=== PATIENT | male | born 1975 | race Caucasian/White ===

== ENCOUNTER 2016-04-04 19:57 | Emergency (ER) ==
[2016-04-04 20:07] VITALS: BP 121/77; TEMP 98.7; BMI 50.2
[2016-04-04] MEDS ORDERED: GI COCKTAIL PO STA (20:13)
[2016-04-04 20:29] LABS: BASOPHILS # (AUTO) 0.1 K/uL (0-0.2); BASOPHILS % (AUTO) 0.3 % (0.0-3.0); EOSINOPHILS # (AUTO) 0.2 K/ul (0.0-0.7); HEMATOCRIT 43.9 % (42.0-52.0); HEMOGLOBIN 14.5 g/dl (14.0-18.0); IMMATURE GRANULOCYTE % (AUTO) 0.4 % (0.0-5.0); LYMPHOCYTES # (AUTO) 1.8 K/uL (0.60-3.4); LYMPHOCYTES % (AUTO) 11.2 (10.0-50.0); MEAN CORPUSCULAR VOLUME 87.8 fl (80.0-94.0); MONOCYTES # (AUTO) 0.9 K/uL (0.4-2.0); MONOCYTES % (AUTO) 5.2 (0-10); NEUTROPHILS # (AUTO) 13.4 K/ul (2.0-6.9); NEUTROPHILS % (AUTO) 81.9; PLATELET COUNT 316 10^3/uL (140-440); WHITE BLOOD COUNT 16.31 K/ul (4.2-10.2)
[2016-04-04 20:44] LABS: FLU INTERNAL QC INTERNAL QC VALID; RAPID FLU A NEGATIVE (NEGATIVE); RAPID FLU B NEGATIVE (NEGATIVE)
[2016-04-04 20:55] LABS: ALANINE AMINOTRANSFERASE 20 U/L (12-78); ALBUMIN 3.2 g/dL (3.4-5.0); ALBUMIN/GLOBULIN RATIO 0.82; ALKALINE PHOSPHATASE 78 U/L (50-136); ASPARTATE AMINO TRANSFERASE 17 U/L (15-37); BILIRUBIN,TOTAL 0.32 mg/dL (0.00-1.20); BLOOD UREA NITROGEN 12 mg/dL (7-18); BUN/CREATININE RATIO 14.63; CARBON DIOXIDE 24 mmol/L (21-32); CREATINE KINASE 97 U/L; CREATININE 0.82 mg/dL (0.60-1.10); GLUCOSE 121 mg/dL (70-100); TOTAL PROTEIN 7.1 g/dL (6.4-8.2)
[2016-04-04 20:56] LABS: ANION GAP 14.6; CHLORIDE 103 mmol/L (98-107); POTASSIUM 3.6 mmol/L (3.5-5.1); SODIUM 138 mmol/L (136-145)
--- NOTE | 2016-04-04 21:15 | ED.PDOC ---
General ED Provider: Dr. DAV CALLAWAY-ER Chief Complaint: Cough Stated Complaint: im coughing up yellow stuff Time Seen by Physician: 20:00 Mode of Arrival: Walk-In Information Source: Patient, Family Exam Limitations: No limitations [facility] Nursing and Triage Documentation Reviewed and Agree: Yes Respiratory Complaint Exam - Respiratory Complaint/Exam Onset/Duration: 4 days Symptoms Are: Still present Timing: Intermittent Initial Severity: Mild Current Severity: Mild Location: Chest Character: Reports: Productive cough Aggravating: Reports: URI Alleviating: Reports: None Associated Signs and Symptoms: Reports: URI, Nasal congestion. Denies: Rapid breathing, Dyspnea, Fever, Chills, Chest pain, Pleuritic chest pain, Wheezing, Hemoptysis, Dizziness, Calf pain, Calf swelling, Edema, Hoarseness, Sinus discomfort, Vomiting, Sore throat, Weight loss, Decreased oral intake, Increased thirst, Increased appetite, Increased urination Related History: Reports: Similar episode History of Healthcare-Acquired Pneumonia: No Related Surgical History: Reports: None Pulmonary Embolism Risk Factors: Smoking Tuberculosis Risk Factors: Reports: None Status Asthmaticus Risk Factors: Reports: None Home Oxygen Use: No Recent Stress Test: No Recent Echo/LV Function: No Current Antibiotic Use: No Current Asthma Medication Use: No Respiratory Distress: None Inadequate Respiratory Effort: No Dysphagia Present: No Stridor Present: No JVD Present: No Accessory Muscle Use: No Retractions: Not Present Diminished Breath Sounds: No Sinus Tenderness: Maxillary Grunting Respirations: No Kussmaul Respirations: No Differential Diagnoses: Bronchitis, Sinusitis Review of Systems - Review Of Systems Constitutional: Reports: No symptoms Eyes: Reports: No symptoms Ears, Nose, Mouth, Throat: Reports: Nose discharge Respiratory: Reports: Cough Cardiac: Reports: No symptoms GI: Reports: No symptoms : Reports: No symptoms Musculoskeletal: Reports: No symptoms Skin: Reports: No symptoms Neurological: Reports: No symptoms Endocrine: Reports: No symptoms Hematologic/Lymphatic: Reports: No symptoms All Other Systems: Reviewed and Negative Past Medical History - Past Medical History Endocrine: Reports: None Cardiovascular: Reports: Hypertension Respiratory: Reports: None Hematological: Reports: None Gastrointestinal: Reports: GERD Genitourinary: Reports: None Neuro/Psych: Reports: None Musculoskeletal: Reports: None Cancer: Reports: None - Surgical History General Surgical History: Reports: Orthopedic (Left knee surgery ), Other ( SURGERY ON BOTH EYES DUE TO STIGMATISM AND TIGHTENED MUSCLES IN EYES APPROX 15 YRS AGO; ) - Family History Family History: Reports: None - Social History Smoking Status: Former smoker Hx Substance Use: No Alcohol Screening: None Lives: With family - Immunizations Tetanus Shot up to Date: No (over 10 years ago) Physical Exam - Physical Exam Appearance: Well-appearing, No pain distress, Well-nourished Eyes: EDGARDO, EOMI, Conjunctiva clear ENT: Rhinorrhea Neck: Supple Respiratory: Airway patent, Breath sounds equal, Respirations nonlabored, Rhonchi Cardiovascular: RRR GI/: Soft Musculoskeletal: Normal strength, ROM intact, No edema, No calf tenderness Skin: Warm, Dry, Normal color Neurological: Sensation intact, Motor intact, Reflexes intact, Cranial nerves intact, Alert, Oriented Psychiatric: Affect appropriate, Mood appropriate Interpretation - Radiology Interpretation Radiology Interpretation By: Radiologist Radiology Results: Positive Exam Interpreted: CXR Critical Care Note - Critical Care Note Total Time (mins): 0 Course - Course Hematology/Chemistry: 04/04/16 20:26 04/04/16 20:26 Orders, Labs, Meds: Lab Review 04/04/16 20:26 WBC 16.31 H RBC 5.00 Hgb 14.5 Hct 43.9 MCV 87.8 MCH 29.0 MCHC 33.0 RDW Coeff of [place] 12.8 Plt Count 316 Immature Gran % (Auto) 0.4 Neut % (Auto) 81.9 Lymph % (Auto) 11.2 [place] % (Auto) 5.2 Eos % (Auto) 1.0 Baso % (Auto) 0.3 Immature Gran # (Auto) 0.1 Neut # 13.4 H Lymph # 1.8 [place] # 0.9 Eos # 0.2 Baso # 0.1 D-Dimer 316.67 H Sodium 138 Potassium 3.6 Chloride 103 Carbon Dioxide 24 Anion Gap 14.6 BUN 12 Creatinine 0.82 Estimated GFR (MDRD) 103.00 BUN/Creatinine Ratio 14.63 Glucose 121 H Calcium 9.0 Total Bilirubin 0.32 AST 17 ALT 20 Alkaline Phosphatase 78 Total Creatine Kinase 97 Troponin I < 0.0100 B-Natriuretic Peptide 33 Total Protein 7.1 Albumin 3.2 L Globulin 3.9 Albumin/Globulin Ratio 0.82 Influenza A (Rapid) Negative Influenza B (Rapid) Negative Orders Category Date Time Status EKG-(ED ONLY) Stat CARDIO 04/04/16 20:12 Completed BNP [B-TYPE NATRIURETIC PEPTIDE] Stat LAB 04/04/16 20:26 Completed CBC W/ AUTO DIFF Stat LAB 04/04/16 20:26 Completed COMPREHENSIVE METABOLIC PANEL Stat LAB 04/04/16 20:26 Completed CREATINE KINASE Stat LAB 04/04/16 20:26 Completed D-DIMER Stat LAB 04/04/16 20:26 Completed MOLECULAR GROUP A STREP Stat LAB 04/04/16 20:26 Results RAPID FLU A/B Stat LAB 04/04/16 20:26 Completed STREP SCREEN Stat LAB 04/04/16 20:26 Results TROPONIN I Stat LAB 04/04/16 20:26 Completed Mag-Al Plus//Lidocaine [Gi Cocktail] MEDS 04/04/16 20:13 Discontinued 30 ml PO ONCE STA CXR [CHEST, 2 VIEWS PA & LAT] Stat RADS 04/04/16 20:12 Completed Medications Discontinued Medications Generic Name Dose Route Start Last Admin Trade Name Freq PRN Reason Stop Dose Admin Al Hydroxide/Mg Hydroxide 30 ml 04/04/16 20:13 04/04/16 20:21 Gi Cocktail PO 04/04/16 20:14 30 ml ONCE STA Administration Vital Signs: Temp Pulse Resp BP Pulse Ox 04/04/16 19:59 98.7 F 113 H 20 121/77 96 Departure - Departure Time of Disposition: 21:15 Disposition: HOME SELF-CARE Discharge Problem: Pneumonia Qualifiers: Pneumonia type: due to unspecified organism Laterality: left Lung location: lower lobe of lung Qualifier Code: (J18.9) Pneumonia, unspecified organism Discharge Problem: (Ruled Out): Bronchitis Instructions: Acute Bronchitis (ED) Condition: Good Pt referred to PMD for follow-up: Yes Additional Instructions: biaxin 500mg bid x 10 days--f/u with pcp and get cxr repeated later this week Allergies/Adverse Reactions: Allergies escitalopram oxalate [From Lexapro] Adverse Reaction (Verified 04/04/16 20:06) HALLUCINATIONS zolpidem tartrate [From Ambien] Adverse Reaction (Verified 04/04/16 20:06) HALLUCINATION Home Medications: Ambulatory Orders Ibuprofen [Motrin] 600 mg PO Q6H PRN #30 tablet 05/28/15 Disposition Discussed With: Patient, Family
--- NOTE | 2016-04-04 21:54 | DI ---
EXAM: Chest two views HISTORY: Cough COMPARISON: None TECHNIQUE: Two views of the chest were performed FINDINGS: There is left lower lobe consolidation There is no pleural effusion or pneumothorax. Th e heart is normal in size. The mediastinal contour is normal. There are no acute abnormalities of the bones. IMPRESSION: Left lower lobe pneumonia. Recommend radiographic follow-up to resolution. Report faxed at time of dictation
== END 2016-04-04 22:00 | disposition home or self-care (01) ==
LOC: ED 19:57
DX: J18.9 Pneumonia, unspecified organism (principal)
CPT/HCPCS: 36415; 80053; 82550; 83880; 84484; 85025; 85379; 87651; 87804; 87880; 93005; 93010; 99283

== ENCOUNTER 2016-04-14 13:41 | Outpatient (CLI) ==
[2016-04-14 13:56] LABS: BASOPHILS # (AUTO) 0.1 K/uL (0-0.2); BASOPHILS % (AUTO) 0.7 % (0.0-3.0); EOSINOPHILS # (AUTO) 0.2 K/ul (0.0-0.7); EOSINOPHILS % (AUTO) 2.1 % (0.0-7.0); HEMATOCRIT 44.6 % (42.0-52.0); HEMOGLOBIN 14.9 g/dl (14.0-18.0); IMMATURE GRANULOCYTE % (AUTO) 0.4 % (0.0-5.0); LYMPHOCYTES % (AUTO) 20.9 (10.0-50.0); MEAN CORPUSCULAR HEMOGLOBIN 29.5 pg (27.0-31.0); MEAN CORPUSCULAR HGB CONC 33.4 (31.8-35.4); MEAN CORPUSCULAR VOLUME 88.3 fl (80.0-94.0); MONOCYTES # (AUTO) 0.6 K/uL (0.4-2.0); MONOCYTES % (AUTO) 6.3 (0-10); NEUTROPHILS # (AUTO) 6.8 K/ul (2.0-6.9); NEUTROPHILS % (AUTO) 69.6; PLATELET COUNT 334 10^3/uL (140-440); RED BLOOD COUNT 5.05 10^6/ul (4.70-6.10); WHITE BLOOD COUNT 9.77 K/ul (4.2-10.2)
--- NOTE | 2016-04-14 14:16 | DI ---
EXAM: LEFT SHOULDER HISTORY: Left shoulder pain FINDINGS: Left shoulder three-view. Bone and joint structures are within normal limits. There is n o joint dislocation or fracture identified. Bone density and soft tissues are unremarkable. IMPRESSION: Within normal limits.
[2016-04-14 14:45] LABS: ALBUMIN 3.3 g/dL (3.4-5.0); ALBUMIN/GLOBULIN RATIO 0.85; ANION GAP 14.1; BILIRUBIN,TOTAL 0.43 mg/dL (0.00-1.20); BUN/CREATININE RATIO 17.64; CALCIUM 9.2 mg/dL (8.2-10.2); CHOL/HDL RATIO 4.4 (4.5-6.4); CREATININE 0.85 mg/dL (0.60-1.10); POTASSIUM 4.1 mmol/L (3.5-5.1); TOTAL PROTEIN 7.2 g/dL (6.4-8.2)
== END 2016-04-14 13:42 | disposition home or self-care (01) ==
LOC: RAD 13:41
PROVIDERS: ATTEND Nurse Practitioner Family
DX: M25.512 Pain in left shoulder (principal); E78.5 Hyperlipidemia, unspecified; I10 Essential (primary) hypertension; R73.09 Other abnormal glucose
CPT/HCPCS: 36415; 80053; 80061; 83036; 84439; 84443; 85025

== ENCOUNTER 2016-04-21 11:51 | Outpatient (CLI) ==
--- NOTE | 2016-04-21 15:09 | MRI ---
EXAM: MRI left shoulder without contrast COMPARISON: Left shoulder radiographs 04/14/2016. HISTORY: Left shoulder pain. TECHNIQUE: Multiplanar noncontrast MR images of the left shoulder were acquired using a 1.2 Landy m [employer]. Several sequences were repeated due to patient motion artifact. FINDINGS: Moderate supraspinatus and subscapularis as well as mild infraspinatus tendinosis. Mild thinning and bursal surface irregularity of the supraspinatus at/lateral to the acromion over region measuring 2.0 cm medial to lateral dimension related bursal surface fraying/shallow partial-thickne ss bursal surface tear. Tiny partial-thickness/rim rent tear measuring 2 mm in size involving inser tional fibers of the supraspinatus anteriorly with edema/cystic change and spurring throughout the u nderlying greater tuberosity. Small focus of partial-thickness/intrasubstance tear of the distal valentin bscapularis superiorly. No full-thickness rotator cuff tear or tendon retraction. Small amount of fluid in the subacromial/subdeltoid bursa. The glenoid labrum is grossly unremarkable on this non arthrographic study. No paralabral cyst. Th e glenohumeral joint space is preserved without an acute fracture or dislocation. Physiologic amoun t of fluid within the joint. The long head of the biceps is located within the bicipital groove and is intact. Capsular hypertrophy and small marginal osteophytes at the acromioclavicular joint. There is a type 2 acromion. No evidence of an os acromiale or abnormal widening of the acromioclavicular joint spa ce. Sub centimeter axillary lymph nodes. IMPRESSION: 1. Mild to moderate rotator cuff tendinosis. Bursal surface fraying/shallow partial-thickness burs al surface tear of the supraspinatus and addition to a tiny partial-thickness/rim rent tear of the i nsertional fibers. Small partial-thickness/intrasubstance tear of the distal subscapularis. No ful l-thickness rotator cuff tear or tendon retraction. 2. Hypertrophic degenerative changes of the acromioclavicular joint. 3. Small amount of fluid in the subacromial/subdeltoid bursa.
== END 2016-04-21 11:52 | disposition home or self-care (01) ==
LOC: RAD 11:51
PROVIDERS: ATTEND Nurse Practitioner Family
DX: M25.512 Pain in left shoulder (principal)

== ENCOUNTER 2016-05-20 12:49 | Outpatient (CLI) ==
[2016-05-20 13:01] LABS: FLU INTERNAL QC INTERNAL QC VALID; RAPID FLU A NEGATIVE (NEGATIVE); RAPID FLU B NEGATIVE (NEGATIVE)
== END 2016-05-20 12:50 | disposition home or self-care (01) ==
LOC: LAB 12:49
PROVIDERS: ATTEND Nurse Practitioner Family
DX: J02.9 Acute pharyngitis, unspecified (principal); R52 Pain, unspecified
CPT/HCPCS: 87804; 87880

== ENCOUNTER 2016-05-24 12:49 | Outpatient (RCR) ==
--- NOTE | 2016-05-26 14:50 | RS.OPPTEV2 ---
Date of Note: 05/24/16 Visit #: 1 Date of Evaluation: 05/24/16 Payer Source: Medicaid Treatment Diagnosis: Left shoulder stiffness, pain History of Condition/Mechanism of Injury:: Patient reports left shoulder limitation for at least 6 months. Reports no known injury to the left shoulder. States it has progressively gotten more limited. Prior Level of Function.....Patient was independent with: ADL's, Self Care, Work /Vocation, Caregiving, Ambulation/Mobility, Community Integration/Access Current Subjective/complaints:: Patient reports limited mobility of his left shoulder. States pain has not been the main problem. He reports he is just having more difficulty using the left UE. Describes discomfort as a dull pain. He is right handed, but has to use the left UE at work, which has progressively become more difficult. States he is able to lay on the left shoulder at night. He denies any history of dislocation or significant shoulder injury. He received an injection in the left shoulder a couple of weeks ago, which did not give any lasting benefit. Treatment Side (optional): Left Medical History Medical History: Hypertension, Arthritis Smoking Status: Former smoker Diagnostic Testing/Imaging:: MRI left shoulder w/o contrast 04/14/16: Impression: "1. Mild to moderate rotator cuff tendinosis. bursal surface fraying/shallow partial-thickness bursal surface tear of the supraspinatus and addition to a tiny partial-thickness/rim rent tear of the insertional fibers. Small partial-thickness intrasubstance tear of the distal subscapularis. No full -thickness rotator cuff tear or tendon retraction. 2. Hypertrophic degenerative changes of the acromioclavicular joint. 3. Small amount of fulid in the subacromial/subdeltoid bursa.". Findings also state "There is a type 2 acromion." Patient's Goals: His goal is to get relief of shoulder pain and limitation. Pain Assessment - Pain Description Pain Location: left shoulder Pain Description: Dull Current Pain Intensity: 0/10 Worst Pain Intensity: 5/10 Functional Outcome Measure UE Functional Index: 72 (72/80=10% impairment) - G Codes & Severity Modifier G Codes & Modifier: NA Source of G Code score: Na Observation - Observation Posture: Forward Head, Rounded Shoulders Handedness: Right Shoulder ROM: Right WFL's Shoulder Muscle Strength: Right WFL's - Left Shoulder ROM Left Shoulder Flexion: 180 (degrees AROM) Left Shoulder Extension: 50 (degrees AROM) Left Shoulder Abduction: 82 (degrees AROM) Left Shoulder Internal Rotation: 70 (degrees AROM) Left Shoulder External Rotation: 65 (degrees AROM) Left Shoulder ROM Limitations: Soft Tissue Tightness, Pain - Left Shoulder Strength Left Shoulder Flexion: 5 Normal Left Shoulder Extension: 5 Normal Left Shoulder Abduction: 4+ Good + Left Shoulder Adduction: 5 Normal Left Shoulder External Rotation: 4+ Good + Left Shoulder Internal Rotation: 4+ Good + - Special Tests Shoulder Empty Can (Supraspinatus) Test: Negative Right, Positive Left Shoulder Speed's Sign Test: Negative Left, Negative Right Shoulder Drop Arm Test: Negative Left, Negative Right Shoulder [place] Impingement Test: Negative Right, Positive Left Palpation Comments:: Patient reports slight tenderness insertion of the supraspinatus and infraspinatus tendons of the left shoulder. Sensation - Sensation Right Upper Extremity: Intact/Normal Left Upper Extremity: Intact/Normal Interventions - Exercise/Activities/Manual Therapy Exercises/Activities: Patient instructed in HEP of pendulum exercises, RTC series (in pendulum position), and isometric shoulder ER against the wall. Manual Therapy: NA HOME EXERCISE PROGRAM: pendulum exercises, RTC series (in pendulum position), and isometric shoulder ER against the wall. - Charges Total Direct Minutes: 45 mins Total Treatment Time: 45 mins Procedures billed for this date of service:: SRINIVAS navarro Assessment Assessment: Patient presents with reports of left shoulder pain. He exhibits limited left shoulder abduction and ER due to pain. He presents with symptoms of involvement of the supraspinatus and infraspinatus tendons. He will benefit from therapy to decrease inflammation of involved soft tissue and exercises to strengthen the RTC, with emphasis on humeral depressors, to reduce his pain with activity. Patient Education: Education of diagnosis, Body/Joint mechanics, Home Exercise Program, Activity Modification, Education of Plan of Care Rehab Potential: Good Short Term Goals Goal #1: Pt independent and compliant with basic HEP. Goal to be met by: 06/09/16 Goal #2: Right shoulder ER WFL's with minimal discomfort. Goal to be met by: 06/09/16 Goal #3: Reports right shoulder pain <3/10 with activity. Goal to be met by: 06/09/16 Nursing Home Goals Goal #1: Pt knows HEP and to continue to maintain level of function at D/C. Goal to be met by: 06/30/16 Goal #2: Left shoulder AROM WFL's to perform all home & work activities. Goal to be met by: 06/30/16 Goal #3: Score on UE functional scale improved to 0% impairment. Goal to be met by: 06/30/16 Goal #4: Pt able to use left UE as needed with minimal shoulder pain. Goal to be met by: 06/30/16 Plan - Treatment to be Provided Procedures: Therapeutic Exercises, Therapeutic Activity, Manual Therapy, Patient Education Modalities: Electrical Stimulation, Ultrasound/Phonophoresis, Class IV Laser, Cryotherapy, Hot Packs - Treatment Plan Frequency: 2 X week Duration: 4 weeks ORDER # VISITS AND/OR THROUGH DATE: 06/30/16 - Treatment Code (1) Shoulder pain Qualifiers: Laterality: left Chronicity: unspecified Qualified Description: Left shoulder pain, unspecified chronicity Qualifier Code(s): (M25.512) Pain in left shoulder (2) Shoulder stiffness Qualifiers: Laterality: left Qualified Description: Stiffness of shoulder joint, left Qualifier Code(s): (M25.612) Stiffness of left shoulder, not elsewhere classified
== END 2016-05-25 ==
DX: S43.52XA Sprain of left acromioclavicular joint, initial encounter (principal)

== ENCOUNTER 2016-06-17 14:00 | Outpatient (RCR) ==
[2016-04-21 11:55] VITALS: BMI 50.2
--- NOTE | 2016-05-27 16:10 | RS.OPPTDN ---
Subjective Date of Note: 05/27/16 Visit #: 2 Date of Evaluation: 05/24/16 Payer Source: Medicaid Treatment Diagnosis: Left shoulder stiffness, pain Current Subjective/complaints:: Patient reports the lack of mobility in the L shoulder bothers him more than the actual pain. Pain Assessment - Pain Description Pain Location: L shoulder Pain Description: Dull, Aching Current Pain Intensity: 1-2/10 - Treatment Modality: Electrical Stim Unattended Parameters/Method Applied: 20 mins. high volt to L shoulder ,one channel @ 75 pv. - Heat/Cryotherapy Treatment: Hot Pack (concurrent with e-stim) Interventions - Exercise/Activities/Manual Therapy Exercises/Activities: 10 mins. of L shoulder PROM,AAROM in short ROM,ended session with isometrics all directions. Total minutes of Exercise: 10 Manual Therapy: 0 Total minutes of Manual Therapy: 0 - Charges Total Direct Minutes: 10 Total Treatment Time: 30 Procedures billed for this date of service:: hp,e-stim,ex 1 Assessment: Patient tolerates exercises with arm at side or at 45 degrees abducted,but has slight increase in pain with shoulder at 90 abducted.He has good understanding of joint protection ,but can benefit from patient education for safety while at work. Patient Education: Education of diagnosis, Body/Joint mechanics, Home Exercise Program, Home Safety, Activity Modification, Education of Plan of Care Patient demonstrates compliance with HEP?: Yes Short Term Goals Goal #1: Patient idependent and compliant with basic HEP. Goal to be met by: 06/09/16 Goal #2: Right shoulder ER WFL,s with minimal discomfort. Goal to be met by: 06/09/16 Progress towards Goal:: Progressing Goal #3: Reports right shoulder pain<3/10 with activity. Goal to be met by: 06/09/16 Progress towards Goal:: Progressing Skilled Nursing Goals Goal #1: Pt. knows HEP and to continue to maintain level of function at D/c. Goal to be met by: 06/30/16 Goal #2: Left shoulder AROM WFL's to perform all home & work activities. Goal to be met by: 06/30/16 Goal #3: Score on UE functional scale improved to 0% impairment. Goal to be met by: 06/30/16 Goal #4: Patient able to use left UE as needed wiith minimal shoulder pain. Goal to be met by: 06/30/16 Plan PLAN OF CARE EXPIRES ON:: 06/30/16 ORDER # VISITS AND/OR THROUGH DATE: 2x/wk for 4 weeks PLAN: Continue Plan of Care
--- NOTE | 2016-06-01 15:13 | RS.OPPTDN ---
Subjective Date of Note: 06/01/16 Visit #: 3 Date of Evaluation: 05/24/16 Payer Source: Medicaid Treatment Diagnosis: Left shoulder stiffness, pain Current Subjective/complaints:: Patient says he believes his last session "loosened" him up. He says he will leave from PT appt to go to work. Reports moving his arm into abd is what causes him pain. Pain Assessment - Pain Description Pain Location: L shoulder Pain Description: Dull, Aching Current Pain Intensity: none presently - Treatment Modality: Electrical Stim Unattended Parameters/Method Applied: hivolt 2 large pads @ 110 pk volts x 20 mins Treatment Area: L anterior and mid deltoid Patient Position: Sitting - Heat/Cryotherapy Treatment: Hot Pack Interventions - Exercise/Activities/Manual Therapy Exercises/Activities: 12 mins. of L shoulder PROM,AAROM in short ROM in sitting. Patient performed manual isometrics of the shoulder in all directions 2/5. Manual Therapy: 0 - Charges Total Direct Minutes: 12 Total Treatment Time: 32 Procedures billed for this date of service:: hp, estim (un), ex Assessment: Patient finding relief with performing pendulum at home. He is performing isometrics as well mainly for ER without difficulty. He kayla all PROM /AAROM well with exception of soreness with abd beyond 80 degrees. He guards throughout all passive motion today. Provided Biofreeze per request. Patient Education: Education of diagnosis, Body/Joint mechanics, Home Exercise Program, Home Safety, Activity Modification, Education of Plan of Care Patient demonstrates compliance with HEP?: Yes Short Term Goals Goal #1: Patient independent and compliant with basic HEP. Goal to be met by: 06/09/16 Progress towards Goal:: Progressing Goal #2: Right shoulder ER WFL,s with minimal discomfort. Goal to be met by: 06/09/16 Progress towards Goal:: Progressing Goal #3: Reports right shoulder pain<3/10 with activity. Goal to be met by: 06/09/16 Progress towards Goal:: Progressing Long-Term Goals Goal #1: Pt. knows HEP and to continue to maintain level of function at D/c. Goal to be met by: 06/30/16 Goal #2: Left shoulder AROM WFL's to perform all home & work activities. Goal to be met by: 06/30/16 Goal #3: Score on UE functional scale improved to 0% impairment. Goal to be met by: 06/30/16 Goal #4: Patient able to use left UE as needed wiith minimal shoulder pain. Goal to be met by: 06/30/16 Plan PLAN OF CARE EXPIRES ON:: 06/30/16 ORDER # VISITS AND/OR THROUGH DATE: 2x/wk for 4 weeks PLAN: Progress Exercises
--- NOTE | 2016-06-03 15:09 | RS.OPPTDN ---
Subjective Date of Note: 06/03/16 Visit #: 4 Date of Evaluation: 05/24/16 Payer Source: Medicaid Treatment Diagnosis: Left shoulder stiffness, pain Current Subjective/complaints:: Patient says that he had felt pain has been better. He says that he has been simulating throwing paper out of the window by performing horizontal abd. He says motion is better and less painful to perform. He says he may have done it too often and reproduced pain. Pain Assessment - Pain Description Pain Location: L shoulder Pain Description: Dull, Aching Current Pain Intensity: none presently - Treatment Modality: Electrical Stim Unattended Parameters/Method Applied: L mid and posterior shoulder @ 135-150 pk volts x 20 mins Patient Position: Sitting - Heat/Cryotherapy Treatment: Hot Pack Interventions - Exercise/Activities/Manual Therapy Exercises/Activities: 15 mins. of L shoulder PROM,AAROM in short ROM in sitting. Patient performed manual isometrics of the shoulder in all directions 2/5. Manual Therapy: 0 - Charges Total Direct Minutes: 15 Total Treatment Time: 35 Procedures billed for this date of service:: hp, estim (un), ex Assessment: Patient able to actively perform L horizontal abd better and more frequently before reproducing pain. Patient continues to guard throughout PROM , but is able to kayla better as well. Patient Education: Education of diagnosis, Body/Joint mechanics, Home Exercise Program, Home Safety, Activity Modification, Education of Plan of Care Patient demonstrates compliance with HEP?: Yes Short Term Goals Goal #1: Patient independent and compliant with basic HEP. Goal to be met by: 06/09/16 Progress towards Goal:: Progressing Goal #2: Right shoulder ER WFL,s with minimal discomfort. Goal to be met by: 06/09/16 Progress towards Goal:: Progressing Goal #3: Reports right shoulder pain<3/10 with activity. Goal to be met by: 06/09/16 Progress towards Goal:: Progressing [place] [employer] Goals Goal #1: Pt. knows HEP and to continue to maintain level of function at D/c. Goal to be met by: 06/30/16 Goal #2: Left shoulder AROM WFL's to perform all home & work activities. Goal to be met by: 06/30/16 Goal #3: Score on UE functional scale improved to 0% impairment. Goal to be met by: 06/30/16 Goal #4: Patient able to use left UE as needed wiith minimal shoulder pain. Goal to be met by: 06/30/16 Plan PLAN OF CARE EXPIRES ON:: 06/30/16 ORDER # VISITS AND/OR THROUGH DATE: 2x/wk for 4 weeks PLAN: Progress Exercises
--- NOTE | 2016-06-08 15:18 | RS.OPPTDN ---
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 He had to do this by raising the item over the tailgate instead of lowering the gate. He says he did have increased pain at that point, but has calmed down now. He says he can tell he has more mobility because he can raise his arm higher than last week. Pain Assessment - Pain Description Pain Location: L shoulder Pain Description: Dull, Aching Current Pain Intensity: mild (anterior and posterior shoulder) - Treatment Modality: Electrical Stim Unattended Parameters/Method Applied: hivolt 2 large pads x 20 mins to the L anterior/ posterior shoulder @ 145-150 pk volts. Patient Position: Sitting - Heat/Cryotherapy Treatment: Hot Pack Interventions - Exercise/Activities/Manual Therapy Exercises/Activities: 22 mins. of L shoulder PROM,AAROM in short ROM in sitting. Patient performed manual isometrics of the shoulder in all directions 2/5. Standing: Red latex free tband scap retraction (given for home as well). Manual Therapy: 0 - Charges Total Direct Minutes: 22 Total Treatment Time: 42 Procedures billed for this date of service:: hp, estim (Un), ex Assessment: Patient demonstrates full passive shoulder flexion and abd and actively WFL for flexion. Limited ER by approx 30-40% . Patient Education: Education of diagnosis, Body/Joint mechanics, Home Exercise Program, Home Safety, Activity Modification, Education of Plan of Care Patient demonstrates compliance with HEP?: Yes Short Term Goals Goal #1: Patient independent and compliant with basic HEP. Goal to be met by: 06/09/16 Progress towards Goal:: Progressing Goal #2: Right shoulder ER WFL,s with minimal discomfort. Goal to be met by: 06/09/16 Progress towards Goal:: Progressing Goal #3: Reports right shoulder pain<3/10 with activity. Goal to be met by: 06/09/16 Progress towards Goal:: Progressing Jail Goals Goal #1: Pt. knows HEP and to continue to maintain level of function at D/c. Goal to be met by: 06/30/16 Progress towards goal: Progressing Goal #2: Left shoulder AROM WFL's to perform all home & work activities. Goal to be met by: 06/30/16 Goal #3: Score on UE functional scale improved to 0% impairment. Goal to be met by: 06/30/16 Goal #4: Patient able to use left UE as needed wiith minimal shoulder pain. Goal to be met by: 06/30/16 Plan PLAN OF CARE EXPIRES ON:: 06/30/16 ORDER # VISITS AND/OR THROUGH DATE: 2x/wk for 4 weeks PLAN: Progress Exercises
--- NOTE | 2016-06-10 16:39 | RS.OPPTDN ---
Subjective Date of Note: 06/10/16 Visit #: 6 Date of Evaluation: 05/24/16 Payer Source: Medicaid Treatment Diagnosis: Left shoulder stiffness, pain Current Subjective/complaints:: Patient says he really isn't having much pain anymore. 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 He says he has been performing shoulder abd and increasing the range while at home and work and notices it is better. Pain Assessment - Pain Description Pain Location: L shoulder Pain Description: Dull, Aching Current Pain Intensity: none at present - Treatment Modality: Electrical Stim Unattended Parameters/Method Applied: 2 large pads @ 180 pk volts x 15 mins to anterior and mid deltoid (L) Patient Position: Sitting - Heat/Cryotherapy Treatment: Hot Pack Interventions - Exercise/Activities/Manual Therapy Exercises/Activities: 22 mins. of L shoulder PROM,AAROM in short ROM in sitting. Patient performed manual isometrics of the shoulder in all directions 2/5. Added 2# wand for bilateral shoulder flexion and green tband scap retraction. Manual Therapy: 0 - Charges Total Direct Minutes: 22 Total Treatment Time: 37 Procedures billed for this date of service:: hp, estim (un), ex Assessment: Patient presenting with less pain, in fact, none at present. He is working on HEP to accrue increased abd/flexion. He kayla all strengthening well. Patient Education: Education of diagnosis, Body/Joint mechanics, Home Exercise Program, Home Safety, Activity Modification, Education of Plan of Care Patient demonstrates compliance with HEP?: Yes Short Term Goals Goal #1: Patient independent and compliant with basic HEP. Goal to be met by: 06/09/16 Progress towards Goal:: Progressing Goal #2: Right shoulder ER WFL,s with minimal discomfort. Goal to be met by: 06/09/16 Progress towards Goal:: Progressing Goal #3: Reports right shoulder pain<3/10 with activity. Goal to be met by: 06/09/16 Progress towards Goal:: Progressing Mcfp Goals Goal #1: Pt. knows HEP and to continue to maintain level of function at D/c. Goal to be met by: 06/30/16 Progress towards goal: Progressing Goal #2: Left shoulder AROM WFL's to perform all home & work activities. Goal to be met by: 06/30/16 Goal #3: Score on UE functional scale improved to 0% impairment. Goal to be met by: 06/30/16 Goal #4: Patient able to use left UE as needed wiith minimal shoulder pain. Goal to be met by: 06/30/16 Plan PLAN OF CARE EXPIRES ON:: 06/30/16 ORDER # VISITS AND/OR THROUGH DATE: 2x/wk for 4 weeks PLAN: Progress Exercises
--- NOTE | 2016-06-15 16:03 | RS.OPPTDN ---
Subjective Date of Note: 06/15/16 Visit #: 7 Date of Evaluation: 05/24/16 Payer Source: Medicaid Treatment Diagnosis: Left shoulder stiffness, pain Current Subjective/complaints:: Patient admits that yesterday (all day) he has had a dull ache to the upper L arm comparing it to as if he had slept on it all day. He says other than yesterday, pain is relatively low and is stronger with tasks at work and home. Pain Assessment - Pain Description Pain Location: L shoulder Pain Description: Dull, Aching Current Pain Intensity: none at present - Treatment Modality: Electrical Stim Unattended Parameters/Method Applied: 2 large pads @ 110-145 pk volts x 15 mins to L anterior and mid deltoid Patient Position: Sitting - Heat/Cryotherapy Treatment: Hot Pack Interventions - Exercise/Activities/Manual Therapy Exercises/Activities: 22 mins. of L shoulder PROM,AAROM in short ROM in sitting. Patient performed manual isometrics of the shoulder in all directions 2/5. Continued with 3# wand for bilateral shoulder flexion and blue tband scap retraction and added bilateral shoulder ER. Manual Therapy: 0 - Objective Findings Observations,measurements,etc.: Patient performs full PROM and AROM is WNL as well with the exception of ABD to approx 90 degrees, then paused by pain, then resumes to near WNL. Improved kayla to progressive strengthening in the department. - Charges Total Direct Minutes: 22 Total Treatment Time: 42 Procedures billed for this date of service:: hp, estim (un), ex Assessment: Patient demo progressive strengthening and ROM. He performs HEP often at work and notices improved ability to perform job duties. Impingement symptoms are present with active shoulder abd ~90 degrees. Patient Education: Education of diagnosis, Body/Joint mechanics, Home Exercise Program, Home Safety, Activity Modification, Education of Plan of Care Patient demonstrates compliance with HEP?: Yes Short Term Goals Goal #1: Patient independent and compliant with basic HEP. Goal to be met by: 06/09/16 Progress towards Goal:: Met Goal #2: Right shoulder ER WFL,s with minimal discomfort. Goal to be met by: 06/09/16 Progress towards Goal:: Met Goal #3: Reports right shoulder pain<3/10 with activity. Goal to be met by: 06/09/16 Progress towards Goal:: Progressing Long-Term Goals Goal #1: Pt. knows HEP and to continue to maintain level of function at D/c. Goal to be met by: 06/30/16 Progress towards goal: Progressing Goal #2: Left shoulder AROM WFL's to perform all home & work activities. Goal to be met by: 06/30/16 Progress towards goal: Progressing Goal #3: Score on UE functional scale improved to 0% impairment. Goal to be met by: 06/30/16 Goal #4: Patient able to use left UE as needed wiith minimal shoulder pain. Goal to be met by: 06/30/16 Plan PLAN OF CARE EXPIRES ON:: 06/30/16 ORDER # VISITS AND/OR THROUGH DATE: 2x/wk for 4 weeks PLAN: Progress Exercises (Patient to attend one more session per order. Patient to progress HEP independently and attend f/u with Ortho)
--- NOTE | 2016-06-17 15:39 | RS.OPPTDN ---
Subjective Date of Note: 06/17/16 Visit #: 8 Date of Evaluation: 05/24/16 Payer Source: Medicaid Treatment Diagnosis: Left shoulder stiffness, pain Current Subjective/complaints:: Patient says he no longer has sharp pain. He says he rarely has pain at all unless he lifts something heavy above his head. He says job tasks are usually very tolerable because he has help if he needs it. Pain Assessment - Pain Description Pain Location: L shoulder Pain Description: Dull, Aching Current Pain Intensity: none at present - Treatment Modality: Electrical Stim Unattended Parameters/Method Applied: hivolt 2 large pads @ 120 pk volts x 20 mins to the L anterior/mid deltoid Patient Position: Sitting - Heat/Cryotherapy Treatment: Hot Pack Interventions - Exercise/Activities/Manual Therapy Exercises/Activities: 22 mins. of L shoulder PROM,AAROM in short ROM in sitting. Patient performed manual isometrics of the shoulder in all directions 2/5. Progressed to 4# wand for bilateral shoulder flexion and blue tband scap retraction, bilateral shoulder ER. Added blue tband shoulder flexion, extension , and horizontal bilateral abd. All 2/10 reps. Reassessment of UE Functional Scale. Manual Therapy: 0 - Objective Findings Observations,measurements,etc.: 75/80 or 6% impairment (Eval 72/80 or 10%) - Charges Total Direct Minutes: 22 Total Treatment Time: 42 Procedures billed for this date of service:: hp, estim (un), ex Assessment: Patient demonstrates full L shoulder flexion and ~10 % limitation with ABD actively. ER is full passively, limited by ~20% actively. UE Score has improved from 10% impairment to 6%. Patient Education: Education of diagnosis, Body/Joint mechanics, Home Exercise Program, Home Safety, Activity Modification, Education of Plan of Care Patient demonstrates compliance with HEP?: Yes Short Term Goals Goal #1: Patient independent and compliant with basic HEP. Goal to be met by: 06/09/16 Progress towards Goal:: Met Goal #2: Right shoulder ER WFL,s with minimal discomfort. Goal to be met by: 06/09/16 Progress towards Goal:: Met Goal #3: Reports right shoulder pain<3/10 with activity. Goal to be met by: 06/09/16 Progress towards Goal:: Progressing Assisted Goals Goal #1: Pt. knows HEP and to continue to maintain level of function at D/c. Goal to be met by: 06/30/16 Progress towards goal: Progressing Goal #2: Left shoulder AROM WFL's to perform all home & work activities. Goal to be met by: 06/30/16 Progress towards goal: Progressing Goal #3: Score on UE functional scale improved to 0% impairment. Goal to be met by: 06/30/16 Goal #4: Patient able to use left UE as needed wiith minimal shoulder pain. Goal to be met by: 06/30/16 Plan PLAN OF CARE EXPIRES ON:: 06/30/16 ORDER # VISITS AND/OR THROUGH DATE: 2x/wk for 4 weeks PLAN: Plan for Discharge (Patient has completed original orders allowed and per approved insurance)
--- NOTE | 2016-07-12 09:42 | RS.QUICKDC ---
Discharge from PT Date of Discharge: 07/12/16 Number of Visits: 8 Reason for Discharge: Patient attended full order for PT regarding the L shoulder. He received treatment of moist heat, estim, and therex of mobility and strengthening. He was given HEP including moderate resistance tbands and ROM activity. He reported improvement in pain and motion allowing better toleration for work activities. He is discharged at this time. See daily notes for specific treatment.
== END 2016-06-25 ==
DX: S43.52XA Sprain of left acromioclavicular joint, initial encounter (principal)

== ENCOUNTER 2016-06-26 12:51 | Emergency (ER) ==
[2016-06-26 12:54] VITALS: BP 161/100; TEMP 96.4; BMI 48.4
--- NOTE | 2016-06-26 13:36 | DI ---
EXAM: Right foot, three views. HISTORY: Right foot pain. COMPARISON: None. FINDINGS: AP, lateral and oblique views of the right foot. There are no acute or healing fractures . There are no lytic or blastic lesions. The soft tissues are normal. Bone mineralization is norm al. There is a small plantar spur. IMPRESSION: 1. No acute fracture. 2. Plantar spur.
--- NOTE | 2016-06-26 13:38 | DI ---
EXAM: Right ankle. Three view. HISTORY: Right ankle pain. COMPARISON: None. FINDINGS: AP, lateral and oblique views of the right ankle. There are no acute or healing fracture s. There are no lytic or blastic lesions. Soft tissues are normal. There is a small plantar spur. The talar dome is intact. IMPRESSION: 1. No acute abnormalities. 2. Small plantar spur.
--- NOTE | 2016-06-26 13:48 | ED.PDOC ---
General ED Provider: Dr. WANDER KASPER Chief Complaint: Ankle Pain/Injury Stated Complaint: ankle pain/ foot pain Time Seen by Physician: 13:00 Mode of Arrival: Walk-In Information Source: Patient Exam Limitations: No limitations Primary Care Provider: AALIYAH DE JESUS Nursing and Triage Documentation Reviewed and Agree: Yes Musculoskeletal Complaint Exam - Ankle/Foot Complaint/Exam Location of Injury: Reports: Right, Ankle, Foot Mechanism of Injury: Reports: No known trauma Onset/Duration: 1 day Symptoms Are: Reports: Still present Onset of Pain: Reports: Hours Initial Severity: Moderate Current Severity: Mild Location: Reports: Discrete Character: Reports: Aching Alleviating: Reports: Rest, Position Aggravating: Reports: Movement, Weight bearing Able to Bear Weight: Yes Associated Signs and Symptoms: Denies: Swelling, Redness, Bruising, Fever, Weakness, Numbness, Tingling Gout Risk Factors: Reports: >40 years old Related Surgical History: Reports: None Achilles Tendon Abnormality: No Tenderness: Present: Lateral malleolus, Midfoot Differential Diagnosis: Closed Fracture Review of Systems - Review Of Systems Constitutional: Reports: No symptoms Eyes: Reports: No symptoms Ears, Nose, Mouth, Throat: Reports: No symptoms Respiratory: Reports: No symptoms Cardiac: Reports: No symptoms GI: Reports: No symptoms : Reports: No symptoms Musculoskeletal: Reports: Other (ankle, foot pain right sided ) Skin: Reports: No symptoms Neurological: Reports: No symptoms Endocrine: Reports: No symptoms Hematologic/Lymphatic: Reports: No symptoms All Other Systems: Reviewed and Negative Past Medical History - Past Medical History Endocrine: Reports: None Cardiovascular: Reports: Hypertension Respiratory: Reports: None Hematological: Reports: None Gastrointestinal: Reports: GERD Genitourinary: Reports: None Neuro/Psych: Reports: None Musculoskeletal: Reports: None Cancer: Reports: None - Surgical History General Surgical History: Reports: Orthopedic (Left knee surgery ), Other ( SURGERY ON BOTH EYES DUE TO STIGMATISM AND TIGHTENED MUSCLES IN EYES APPROX 15 YRS AGO; ) - Family History Family History: Reports: None - Social History Smoking Status: Former smoker Hx Substance Use: No Alcohol Screening: None Physical Exam - Physical Exam Appearance: Well-appearing, No pain distress, Well-nourished Eyes: EDGARDO, EOMI, Conjunctiva clear ENT: Ears normal, Nose normal, Oropharynx normal Respiratory: Airway patent, Breath sounds clear, Breath sounds equal, Respirations nonlabored Cardiovascular: RRR, Pulses normal, No rub, No murmur GI/: Soft, Nontender, No masses, Bowel sounds normal, No Organomegaly Musculoskeletal: Normal strength, ROM intact, No edema, No calf tenderness Skin: Warm, Dry, Normal color Neurological: Sensation intact, Motor intact, Reflexes intact, Cranial nerves intact, Alert, Oriented Psychiatric: Affect appropriate, Mood appropriate Interpretation - Radiology Interpretation Radiology Interpretation By: Radiologist Radiology Results: No acute changes Critical Care Note - Critical Care Note Total Time (mins): 0 Course - Course Orders, Labs, Meds: Lab Review 06/26/16 13:10 Uric Acid 5.1 Orders Category Date Time Status URIC ACID Stat LAB 06/26/16 13:08 Ordered ANKLE, RIGHT MIN 3 VIEWS Stat RADS 06/26/16 13:08 Ordered FOOT, RIGHT 3 VIEWS Stat RADS 06/26/16 13:08 Ordered Vital Signs: Temp Pulse Resp BP Pulse Ox 06/26/16 12:51 96.4 F L 72 20 161/100 H 96 Departure - Departure Time of Disposition: 13:48 Disposition: HOME SELF-CARE Discharge Problem: Ankle pain Instructions: Arthralgia (ED) Condition: Good Pt referred to PMD for follow-up: No Additional Instructions: Please call your Family Physician as soon as possible to schedule a follow-up appointment. Allergies/Adverse Reactions: Allergies escitalopram oxalate [From Lexapro] Adverse Reaction (Verified 06/26/16 12:55) HALLUCINATIONS zolpidem tartrate [From Ambien] Adverse Reaction (Verified 06/26/16 12:55) HALLUCINATION Home Medications: Ambulatory Orders Ibuprofen [Motrin] 600 mg PO Q6H PRN #30 tablet 05/28/15 Lodine 400 mg PO BID 05/20/16
== END 2016-06-26 13:57 | disposition home or self-care (01) ==
LOC: ED 12:51
DX: M25.571 Pain in right ankle and joints of right foot (principal)
CPT/HCPCS: 36415; 84550; 99282

== ENCOUNTER 2016-10-05 15:38 | Outpatient (CLI) ==
[2016-10-05 17:38] LABS: BASOPHILS # (AUTO) 0.1 K/uL (0-0.2); BASOPHILS % (AUTO) 0.6 % (0.0-3.0); EOSINOPHILS # (AUTO) 0.1 K/ul (0.0-0.7); EOSINOPHILS % (AUTO) 1.2 % (0.0-7.0); HEMATOCRIT 44.1 % (42.0-52.0); HEMOGLOBIN 14.7 g/dl (14.0-18.0); IMMATURE GRANULOCYTE % (AUTO) 0.6 % (0.0-5.0); LYMPHOCYTES # (AUTO) 2.1 K/uL (0.60-3.4); LYMPHOCYTES % (AUTO) 19.4 (10.0-50.0); MEAN CORPUSCULAR HEMOGLOBIN 29.3 pg (27.0-31.0); MEAN CORPUSCULAR HGB CONC 33.3 (31.8-35.4); MONOCYTES # (AUTO) 0.7 K/uL (0.4-2.0); MONOCYTES % (AUTO) 6.2 (0-10); NEUTROPHILS # (AUTO) 7.6 K/ul (2.0-6.9); PLATELET COUNT 297 10^3/uL (140-440); RED BLOOD COUNT 5.01 10^6/ul (4.70-6.10); WHITE BLOOD COUNT 10.57 K/ul (4.2-10.2)
[2016-10-05 17:55] LABS: ALBUMIN 3.4 g/dL (3.4-5.0); ALBUMIN/GLOBULIN RATIO 1.06; BILIRUBIN,TOTAL 0.19 mg/dL (0.00-1.20); BUN/CREATININE RATIO 16.45; CALCIUM 8.8 mg/dL (8.2-10.2); CREATININE 0.79 mg/dL (0.60-1.10); TOTAL PROTEIN 6.6 g/dL (6.4-8.2)
[2016-10-05 17:58] LABS: H. PYLORI ANTIBODY NEGATIVE (NEGATIVE); H.PYLORI INTERNAL QC INTERNAL QC VALID
== END 2016-10-05 15:39 | disposition home or self-care (01) ==
LOC: LAB 15:38
PROVIDERS: ATTEND Nurse Practitioner Family
DX: R10.9 Unspecified abdominal pain (principal); R10.817 Generalized abdominal tenderness; R11.2 Nausea with vomiting, unspecified; K92.1 Melena
CPT/HCPCS: 36415; 80053; 82150; 83690; 85025; 86677

== ENCOUNTER 2016-10-08 11:14 | Outpatient (CLI) ==
--- NOTE | 2016-10-08 11:50 | CT ---
EXAM: CT ABDOMEN AND PELVIS HISTORY: Abdominal pain, midportion TECHNIQUE: CT abdomen and pelvis without intravenous contrast. Images were reconstructed using 5 m m section thickness. Reformations were prepared. COMPARISON: 07/25/2009 FINDINGS: Diagnostic limitations exist without including contrast enhanced images. Liver and spleen are gross ly unremarkable. Gallbladder is absent. Pancreas and adrenal glands appear normal. Kidneys and ure ters are within normal limits. There is minimal atherosclerotic disease of the aorta. Mild hazines s of the mesenteric root fat. Multiple tiny nonspecific mesenteric root lymph nodes are seen. No gastric distension. Normal appendix. Normal bowel gas pattern. Unremarkable prostate and urina ry bladder. No ascites. Bones reveal no acute abnormality. There is no ventral abdominal wall hernia. Lung bases are clear . No suspicious lung base nodular opacities. No pneumoperitoneum. IMPRESSION: 1. Haziness of the mesenteric root fat with multiple tiny nonspecific regional lymph nodes. This m ay represent a degree of mild mesenteritis or be a chronic finding for the patient. Less likely ear ly pathologic change such as neoplasia. 2. Kidneys, ureters and urinary bladder appear normal. 3. Normal bowel gas pattern.
== END 2016-10-08 11:15 | disposition home or self-care (01) ==
LOC: RAD 11:14
PROVIDERS: ATTEND Nurse Practitioner Family
DX: R10.9 Unspecified abdominal pain (principal); R10.817 Generalized abdominal tenderness; R11.2 Nausea with vomiting, unspecified; K92.1 Melena

== ENCOUNTER 2016-11-18 11:57 | Emergency (ER) ==
[2016-11-18 12:00] VITALS: BP 146/80; TEMP 97.3; BMI 47.3
--- NOTE | 2016-11-18 12:15 | ED.PDOC ---
General ED Provider: Dr. WANDER KASPER Chief Complaint: Wrist Pain/Injury Stated Complaint: left wrist pain Time Seen by Physician: 12:00 Mode of Arrival: Walk-In Information Source: Patient Exam Limitations: No limitations [facility] and Triage Documentation Reviewed and Agree: Yes Musculoskeletal Complaint Exam - Hand/Wrist Complaint/Exam Location of Pain: Reports: Left, Hand, Wrist Mechanism of Injury: Reports: No known trauma Onset/Duration: chronic no impact related injury Symptoms Are: Still present Initial Severity: Moderate Current Severity: Mild Character: Reports: Dull, Aching Alleviating: Reports: Rest, Elevation Aggravating: Reports: Movement Associated Signs and Symptoms: Denies: Swelling, Redness, Bruising, Fever, Weakness, Numbness, Tingling Related History: Reports: Similar episode Dominant Hand: Right Compartment Syndrome Risk Factors: Present: Pain Differential Diagnoses: Closed Fracture, Sprain, Strain, Tenosynovitis Review of Systems - Review Of Systems Constitutional: Reports: No symptoms Eyes: Reports: No symptoms Ears, Nose, Mouth, Throat: Reports: No symptoms Respiratory: Reports: No symptoms Cardiac: Reports: No symptoms GI: Reports: No symptoms : Reports: No symptoms Musculoskeletal: Reports: Joint pain Skin: Reports: No symptoms Neurological: Reports: No symptoms Endocrine: Reports: No symptoms Hematologic/Lymphatic: Reports: No symptoms All Other Systems: Reviewed and Negative Past Medical History - Past Medical History Endocrine: Reports: None Cardiovascular: Reports: Hypertension Respiratory: Reports: None Hematological: Reports: None Gastrointestinal: Reports: GERD Genitourinary: Reports: None Neuro/Psych: Reports: None Musculoskeletal: Reports: None Cancer: Reports: None - Surgical History General Surgical History: Reports: Orthopedic (Left knee surgery ), Other ( SURGERY ON BOTH EYES DUE TO STIGMATISM AND TIGHTENED MUSCLES IN EYES APPROX 15 YRS AGO; ) - Family History Family History: Reports: None - Social History Smoking Status: Former smoker Hx Substance Use: No Alcohol Screening: None Physical Exam - Physical Exam Appearance: Well-appearing, No pain distress, Well-nourished Eyes: EDGARDO, EOMI, Conjunctiva clear ENT: Ears normal, Nose normal, Oropharynx normal Respiratory: Airway patent, Breath sounds clear, Breath sounds equal, Respirations nonlabored Cardiovascular: RRR, Pulses normal, No rub, No murmur GI/: Soft, Nontender, No masses, Bowel sounds normal, No Organomegaly Musculoskeletal: Normal strength (but has pain on distal radial region), ROM intact, No edema, No calf tenderness Skin: Warm, Dry, Normal color Neurological: Sensation intact, Motor intact, Reflexes intact, Cranial nerves intact, Alert, Oriented Psychiatric: Affect appropriate, Mood appropriate Critical Care Note - Critical Care Note Total Time (mins): 0 Course - Course Vital Signs: Temp Pulse Resp BP Pulse Ox 11/18/16 11:57 97.3 F L 68 18 146/80 H 95 Departure - Departure Time of Disposition: 12:15 Disposition: HOME SELF-CARE Discharge Problem: Pain in wrist, Injury of wrist Instructions: Wrist Injury (ED) Condition: Good Pt referred to PMD for follow-up: Yes Allergies/Adverse Reactions: Allergies escitalopram oxalate [From Lexapro] Adverse Reaction (Verified 11/18/16 12:00) HALLUCINATIONS zolpidem tartrate [From Ambien] Adverse Reaction (Verified 11/18/16 12:00) HALLUCINATION Home Medications: Ambulatory Orders Hydrocodone/Acetaminophen [[place] 10-325 Tablet] 1 each PO Q8HR #12 tablet
--- NOTE | 2016-11-18 12:51 | DI ---
Exam: Left hand three view HISTORY: Pain. Comparison: Left wrist three-view 06/19/2014. FINDINGS: Three views of the left hand are submitted. The lateral view is limited by positioning. Site of pain is not specified, nor is a marker present. These images demonstrate no evidence of ac tai fracture or dislocation. There is no osseous erosion or radiodense foreign body. There is no s ignificant soft tissue swelling visualized. IMPRESSION: No acute fracture or dislocation involving the left hand.
--- NOTE | 2016-11-18 12:52 | DI ---
EXAM: LEFT WRIST THREE VIEWS HISTORY: Wrist pain FINDINGS: Bone and joint structures appear normal. No joint dislocation, displaced fracture or b one density abnormality. Soft tissues are within normal limits. No arthritic change. IMPRESSION: Unremarkable study.
== END 2016-11-18 12:50 | disposition home or self-care (01) ==
LOC: ED 11:57
DX: M25.532 Pain in left wrist (principal)
CPT/HCPCS: 99282

== ENCOUNTER 2017-08-30 10:21 | Outpatient (CLI) | END 2017-08-30 10:22 | disposition home or self-care (01) | LOC: RHC-LAB 10:21 | PROVIDERS: ATTEND Nurse Practitioner Family | DX: I10 Essential (primary) hypertension (principal); E78.5 Hyperlipidemia, unspecified; J02.9 Acute pharyngitis, unspecified | CPT/HCPCS: 36415; 80053; 80061; 84443; 85025; 87651 ==

== ENCOUNTER 2017-09-28 20:28 | Emergency (ER) | payer MEDICAID, OTHER ==
[2017-09-28 20:36] VITALS: BP 133/81; TEMP 98.5; BMI 48.7
--- NOTE | 2017-09-28 20:56 | ED.PDOC ---
General ED Provider: Dr. DAV CALLAWAY-ER Chief Complaint: Foot Pain/Injury Stated Complaint: my heel hurts Time Seen by Physician: 20:54 Mode of Arrival: Walk-In Information Source: Patient Exam Limitations: No limitations Primary Care Provider: INEZ DERAS-[facility] Nursing and Triage Documentation Reviewed and Agree: Yes Does patient meet sepsis criteria?: No System Inflammatory Response Syndrome: Not Applicable Sepsis Protocol: For patient's 13 years and over: Temp is 96.8 and below OR 101 and greater Pulse >90 BPM Resp >20/minute Acutely Altered Mental Status Are patient's symptoms suggestive of a new infection, such as: -Pneumonia -Skin, Soft Tissue -Endocarditis -UTI -Bone, Joint Infection -Implantable Device -Acute Abdominal Infection -Wound Infection -Meningitis -Blood Stream Catheter Infection -Unknown Musculoskeletal Complaint Exam - Ankle/Foot Complaint/Exam Location of Injury: Reports: Right, Foot Mechanism of Injury: Reports: No known trauma Onset/Duration: 2 weeks Symptoms Are: Reports: Still present Onset of Pain: Reports: Immediate Initial Severity: Mild Current Severity: Mild Location: Reports: Discrete Character: Reports: Dull Alleviating: Reports: None Aggravating: Reports: Movement, Weight bearing, Prolonged standing Able to Bear Weight: Yes Associated Signs and Symptoms: Denies: Swelling, Redness, Bruising, Fever, Weakness, Numbness, Tingling Achilles Tendon Abnormality: No Tenderness: Present: Heel Review of Systems - Review Of Systems Constitutional: Reports: No symptoms Eyes: Reports: No symptoms Ears, Nose, Mouth, Throat: Reports: No symptoms Respiratory: Reports: No symptoms Cardiac: Reports: No symptoms GI: Reports: No symptoms : Reports: No symptoms Musculoskeletal: Reports: No symptoms Skin: Reports: No symptoms Neurological: Reports: No symptoms Endocrine: Reports: No symptoms Hematologic/Lymphatic: Reports: No symptoms All Other Systems: Reviewed and Negative Past Medical History - Past Medical History Previously Healthy: No Endocrine: Reports: None Cardiovascular: Reports: Hypertension Respiratory: Reports: None Hematological: Reports: None Gastrointestinal: Reports: GERD Genitourinary: Reports: None Neuro/Psych: Reports: None Musculoskeletal: Reports: None Cancer: Reports: None - Surgical History General Surgical History: Reports: Orthopedic (Left knee surgery ), Other ( SURGERY ON BOTH EYES DUE TO STIGMATISM AND TIGHTENED MUSCLES IN EYES APPROX 15 YRS AGO; ) - Family History Family History: Reports: None - Social History Smoking Status: Former smoker Hx Substance Use: No Alcohol Screening: None - Immunizations Tetanus Shot up to Date: Yes Physical Exam - Physical Exam Appearance: Well-appearing, No pain distress, Well-nourished Pain Distress: Mild Eyes: EDGARDO, EOMI, Conjunctiva clear ENT: Ears normal, Nose normal, Oropharynx normal Neck: Supple Respiratory: Airway patent Cardiovascular: RRR, Pulses normal, No rub, No murmur GI/: Soft, Nontender, No masses, Bowel sounds normal, No Organomegaly Musculoskeletal: Normal strength, ROM intact, No edema, No calf tenderness Skin: Warm, Dry, Normal color Neurological: Sensation intact, Motor intact, Reflexes intact, Cranial nerves intact, Alert, Oriented Psychiatric: Affect appropriate, Mood appropriate Critical Care Note - Critical Care Note Total Time (mins): 0 Course - Course Orders, Labs, Meds: Orders Category Date Time Status HEEL, RIGHT (CALCANEUS) Stat RADS 09/28/17 20:30 Taken Vital Signs: Temp Pulse Resp BP Pulse Ox 09/28/17 20:29 98.5 F 83 20 133/81 96 Departure - Departure Time of Disposition: 20:56 Disposition: HOME SELF-CARE Discharge Problem: Heel spur Qualifiers: Laterality: right Qualified Code(s): M77.31 - Calcaneal spur, right foot Instructions: Heel Spur (ED), Plantar Fasciitis (ED) Condition: Good Pt referred to PMD for follow-up: Yes IPMP verified?: No Additional Instructions: use heel cup--cataflam 50mg tid with food #30--f/u with pcp Allergies/Adverse Reactions: Allergies escitalopram oxalate [From Lexapro] Adverse Reaction (Verified 09/28/17 20:33) HALLUCINATIONS zolpidem tartrate [From Ambien] Adverse Reaction (Verified 09/28/17 20:33) HALLUCINATION Disposition Discussed With: Patient
--- NOTE | 2017-09-28 21:33 | DI ---
EXAM: Right calcaneus. HISTORY: Pain. No acute injury. COMPARISON: Right foot dated 06/26/2016. FINDINGS: AP and lateral views of the right calcaneus. There is a plantar spur. There are no acute or healing fractures. There are no lytic or blastic lesions. The soft tissues are normal. IMPRESSION: Plantar spur. Otherwise normal calcaneus.
== END 2017-09-28 21:05 | disposition home or self-care (01) ==
LOC: ED 20:28
DX: M77.31 Calcaneal spur, right foot (principal)
CPT/HCPCS: 99282

== ENCOUNTER 2018-01-20 21:41 | Emergency (ER) ==
[2018-01-20 21:41] VITALS: BMI 48.7
[2018-01-20 21:47] VITALS: BP 160/98; TEMP 98.1
--- NOTE | 2018-01-20 22:34 | CT ---
EXAM: CT of the right wrist without contrast. HISTORY: Wrist pain for 4 weeks. PROCEDURE: Contiguous axial CT images of the right wrist without contrast with coronal and sagittal reformats. FINDINGS: The bones are intact with no evidence of fracture. The joint spaces are maintained. No so ft tissue abnormality. Impression: Negative CT of the right wrist.
--- NOTE | 2018-01-20 23:06 | ED.PDOC ---
General ED Provider: Dr. DAV CALLAWAY-ER Chief Complaint: Wrist Pain/Injury Stated Complaint: my wrist hurts Time Seen by Physician: 21:45 Mode of Arrival: Walk-In Information Source: Patient Exam Limitations: No limitations Primary Care Provider: INEZ DER[facility] Nursing and Triage Documentation Reviewed and Agree: Yes Does patient meet sepsis criteria?: No System Inflammatory Response Syndrome: Not Applicable Sepsis Protocol: For patient's 13 years and over: Temp is 96.8 and below OR 101 and greater Pulse >90 BPM Resp >20/minute Acutely Altered Mental Status Are patient's symptoms suggestive of a new infection, such as: -Pneumonia -Skin, Soft Tissue -Endocarditis -UTI -Bone, Joint Infection -Implantable Device -Acute Abdominal Infection -Wound Infection -Meningitis -Blood Stream Catheter Infection -Unknown Musculoskeletal Complaint Exam - Upper Extremity Complaint/Exam Location of Pain: Reports: Right, Wrist Mechanism of Injury: Reports: No known trauma Onset/Duration: 4 weeks Symptoms Are: Still present Timing: Constant Initial Severity: Mild Current Severity: Mild Location: Reports: Discrete Character: Reports: Aching Aggravating: Reports: Movement, Lifting, Flexion, Extension Related History: Reports: Similar episode Non-Orthopedic Risk Factors: Reports: None Compartment Syndrome Risk Factors: Present: Pain Differential Diagnoses: Arthritis Review of Systems - Review Of Systems Constitutional: Reports: No symptoms Eyes: Reports: No symptoms Ears, Nose, Mouth, Throat: Reports: No symptoms Respiratory: Reports: No symptoms Cardiac: Reports: No symptoms GI: Reports: No symptoms : Reports: No symptoms Musculoskeletal: Reports: No symptoms Skin: Reports: No symptoms, Dryness Neurological: Reports: No symptoms Endocrine: Reports: No symptoms Hematologic/Lymphatic: Reports: No symptoms All Other Systems: Reviewed and Negative Past Medical History - Past Medical History Previously Healthy: No Endocrine: Reports: None Cardiovascular: Reports: Hypertension Respiratory: Reports: None Hematological: Reports: None Gastrointestinal: Reports: GERD Genitourinary: Reports: None Neuro/Psych: Reports: None Musculoskeletal: Reports: None Cancer: Reports: None - Surgical History General Surgical History: Reports: Orthopedic (Left knee surgery ), Other ( SURGERY ON BOTH EYES DUE TO STIGMATISM AND TIGHTENED MUSCLES IN EYES APPROX 15 YRS AGO; ) - Family History Family History: Reports: None - Social History Smoking Status: Former smoker Hx Substance Use: No Alcohol Screening: Occasionally - Immunizations Tetanus Shot up to Date: No Physical Exam - Physical Exam Appearance: Well-appearing Eyes: EDGARDO ENT: Ears normal, Nose normal, Oropharynx normal Neck: Supple Respiratory: Airway patent Cardiovascular: RRR, Pulses normal, No rub, No murmur GI/: Soft, Nontender, No masses, Bowel sounds normal, No Organomegaly Musculoskeletal: Limited ROM Skin: Warm, Dry, Normal color Neurological: Sensation intact, Motor intact, Reflexes intact, Cranial nerves intact, Alert, Oriented Psychiatric: Affect appropriate, Mood appropriate Interpretation - Radiology Interpretation Radiology Interpretation By: Radiologist Radiology Results: Negative Exam Interpreted: CT Scan Critical Care Note - Critical Care Note Total Time (mins): 0 Course - Course Hematology/Chemistry: 01/20/18 22:16 Orders, Labs, Meds: Lab Review 01/20/18 22:16 WBC 12.67 H RBC 5.01 Hgb 14.8 Hct 44.1 MCV 88.0 MCH 29.5 MCHC 33.6 RDW Coeff of [place] 13.1 Plt Count 268 Immature Gran % (Auto) 0.3 Neut % (Auto) 70.3 Lymph % (Auto) 20.4 [place] % (Auto) 7.5 Eos % (Auto) 1.0 Baso % (Auto) 0.5 Immature Gran # (Auto) 0.0 Neut # (Auto) 8.9 H Lymph # (Auto) 2.6 [place] # (Auto) 1.0 Eos # (Auto) 0.1 Baso # (Auto) 0.1 ESR 14 Orders Category Date Time Status C-REACTIVE PROTEIN Stat LAB 01/20/18 22:16 Received CBC W/ AUTO DIFF Stat LAB 01/20/18 22:16 Completed ESR Stat LAB 01/20/18 22:16 Completed RHEUMATOID ARTHRITIS FACTOR Stat LAB 01/20/18 22:[address] WRIST RIGHT W/O CONTRAST Stat RADS 01/20/18 21:58 Completed Vital Signs: Temp Pulse Resp BP Pulse Ox 01/20/18 21:41 98.1 F 84 20 160/98 H 95 Departure - Departure Time of Disposition: 23:05 Disposition: HOME SELF-CARE Discharge Problem: Pain in wrist Instructions: Arthralgia (ED) Condition: Good Pt referred to PMD for follow-up: Yes IPMP verified?: No Additional Instructions: medrol dose pack--f/u with pcp Allergies/Adverse Reactions: Allergies escitalopram oxalate [From [employer]ice[employer]] Adverse Reaction (Verified 01/20/18 21:47) HALLUCINATIONS zolpidem tartrate [From Ambien] Adverse Reaction (Verified 01/20/18 21:47) HALLUCINATION Disposition Discussed With: Patient
== END 2018-01-20 23:10 | disposition home or self-care (01) ==
LOC: ED 21:41
DX: M25.531 Pain in right wrist (principal)
CPT/HCPCS: 36415; 85025; 85651; 86140; 86430; 99283

== ENCOUNTER 2018-04-14 14:42 | Outpatient (CLI) ==
[2018-03-15 23:05] VITALS: BMI 48.7
== END 2018-04-14 14:43 | disposition home or self-care (01) ==
LOC: RHC-LAB 14:42
PROVIDERS: ATTEND Nurse Practitioner Family
DX: I10 Essential (primary) hypertension (principal)
CPT/HCPCS: 36415; 80053; 80061

== ENCOUNTER 2018-10-23 09:37 | Emergency (ER) ==
[2018-10-23 09:40] VITALS: BP 147/85; TEMP 97.9; BMI 46.7
--- NOTE | 2018-10-23 09:51 | ED.PDOC ---
General ED Provider: Dr. AIDE GARY Chief Complaint: Sore Throat Stated Complaint: Sore throat, slightly tender R anterior cervical node; cough, congestion Time Seen by Physician: 09:48 Mode of Arrival: Walk-In Information Source: Patient Exam Limitations: No limitations Primary Care Provider: FITO LYNCH Nursing and Triage Documentation Reviewed and Agree: Yes Does patient meet sepsis criteria?: No System Inflammatory Response Syndrome: Not Applicable Sepsis Protocol: For patient's 13 years and over: Temp is 96.8 and below OR 101 and greater Pulse >90 BPM Resp >20/minute Acutely Altered Mental Status Are patient's symptoms suggestive of a new infection, such as: -Pneumonia -Skin, Soft Tissue -Endocarditis -UTI -Bone, Joint Infection -Implantable Device -Acute Abdominal Infection -Wound Infection -Meningitis -Blood Stream Catheter Infection -Unknown Review of Systems - Review Of Systems Constitutional: Reports: Other (Mild tiredness) Ears, Nose, Mouth, Throat: Reports: Throat pain Respiratory: Reports: Cough (dry, non productive) All Other Systems: Reviewed and Negative Past Medical History - Past Medical History Previously Healthy: No Endocrine: Reports: None Cardiovascular: Reports: Hypertension Respiratory: Reports: None Hematological: Reports: None Gastrointestinal: Reports: GERD Genitourinary: Reports: None Neuro/Psych: Reports: None Musculoskeletal: Reports: None Cancer: Reports: None - Surgical History General Surgical History: Reports: Orthopedic (Left knee surgery ), Other ( SURGERY ON BOTH EYES DUE TO STIGMATISM AND TIGHTENED MUSCLES IN EYES APPROX 15 YRS AGO; ) - Family History Family History: Reports: None - Social History Smoking Status: Former smoker Hx Substance Use: No Alcohol Screening: Occasionally Physical Exam - Physical Exam Appearance: Well-appearing Ill-appearing: None Pain Distress: None Eyes: EDGARDO ENT: Oropharynx normal Neck: Supple Respiratory: Airway patent, Breath sounds clear, Respirations nonlabored Cardiovascular: RRR, Pulses normal Skin: Warm, Dry, Normal color Neurological: Alert, Oriented Psychiatric: Affect appropriate, Mood appropriate Critical Care Note - Critical Care Note Total Time (mins): 8 Course - Course Orders, Labs, Meds: Rapid strep reported negative Vital Signs: Temp Pulse Resp BP Pulse Ox 10/23/18 09:37 97.9 F 93 H 18 147/85 H 97 Departure - Departure Time of Disposition: 11:01 Disposition: HOME SELF-CARE Discharge Problem: Pharyngitis Qualifiers: Pharyngitis/tonsillitis etiology: unspecified etiology Qualified Code(s): J02.9 - Acute pharyngitis, unspecified Instructions: Pharyngitis (ED) Condition: Stable Pt referred to PMD for follow-up: Yes (Call for appointment as needed) IPMP verified?: No (Not aplicable) Additional Instructions: No indication of a bacterial process; rapid strep reported negative. Tylenol and/or ibuprofen for fever and/or discomfort. Follow up with primary care as needed. Allergies/Adverse Reactions: Allergies escitalopram oxalate [From Lexapro] Adverse Reaction (Verified 10/23/18 09:41) HALLUCINATIONS zolpidem tartrate [From Ambien] Adverse Reaction (Verified 10/23/18 09:41) HALLUCINATION Disposition Discussed With: Patient (Educated negative strep by labratory; viral picture - antibiotics not indicated for tx)
== END 2018-10-23 11:15 | disposition home or self-care (01) ==
LOC: ED 09:37
DX: J02.9 Acute pharyngitis, unspecified (principal); R05 Cough
CPT/HCPCS: 87651; 99282